=== PATIENT | female | born 1955 | race Caucasian/White ===

== ENCOUNTER 2017-05-03 13:24 | Inpatient (IN) | payer OTHER ==
[~2017-05-03] VITALS: Ht 152.4 cm; Wt 62.1 kg
[2017-05-03] VITALS (13 sets, daily range): BP systolic 89–144; BP diastolic 59–85; PULSE 62–78; TEMP 36.4–37; O2SAT 94–97; Ht 152.4 cm; Wt 62.1 kg
[~2017-05-03 13:24] MED LIST: GEMF600T3 PO; ONDA4TAB7 SL
[2017-05-03] MEDS ORDERED: MELO15TA4 PO (14:13)
--- NOTE | 2017-05-03 14:28 | EMERGENCY ROOM VISIT NOTE ---
History First contact with patient: 13:40 Chief Complaint: CARDIAC ASSESSMENT Stated Complaint: TIGHT CHEST, ELIEZER ARMS, THROWING UP Nursing Triage Summary: pt states around 1200 pt c/o chest tightness that radiated to bilateral neck pt also c/o bilateral arm numbness and SOB. pt states pain last 15-20 minutes then subsided. pt did not take anything for pain. at this time pt denies chest pain or sob. but continues to have bilateral arm numbness. pt states symptoms happened once alst week. History of Present Illness The patient is a 62 year old female with HLD who presents to the Emergency Room with complaints of Substernal Chest discomfort. Chest Discomfort started around 9 AM today from rest and was described as pressure sensation at 9/10 intensity with radiation to the Rt Neck. No aggravating or alleviating factors. She did not take any medication for relief Patient also reports N/V following event. She denies calf pain, correlation with breathing.No correlation with meals. No fevers, chills. Patient has no Heart or Lung or GERD hx Review of Systems Pt denies headache, change in vision, fevers, shortness of breath, diarrhea, pain with urination, and melena. Past Medical/Surgical History Medical Problems: (1) NSTEMI (non-ST elevated myocardial infarction) (2) Spondylosis of L5 Social History Smoking Status: Never Smoker Smokeless Tobacco Use: No Alcohol Use: occasionally Drug Use: none Marital Status: Housing Status: lives with family Occupation Status: employed Current/Historical Medications Scheduled Gemfibrozil (Lopid), 600 MG PO BID Meloxicam (Meloxicam), 15 MG PO QAM Physical Exam Vital Signs Date Time Temp Pulse Resp B/P (MAP) Pulse Ox O2 Delivery O2 Flow Rate FiO2 05/03/17 17:30 66 16 130/70 (90) 98 Room Air 05/03/17 17:25 68 16 133/74 (93) 98 Room Air 05/03/17 17:15 68 16 133/92 (106) 98 Room Air 05/03/17 15:50 80 18 150/95 97 Room Air 05/03/17 14:42 79 18 184/97 99 Room Air 05/03/17 13:50 99 Room Air 05/03/17 13:42 75 05/03/17 13:33 96 Room Air 05/03/17 13:29 36.7 95 18 155/90 96 Room Air Physical Exam GENERAL: alert, well appearing, well nourished, no distress, non-toxic EYE EXAM: normal conjunctiva, PERRL and EOM's grossly intact OROPHARYNX: no exudate, no erythema, lips, buccal mucosa, and tongue normal and mucous membranes are moist NECK: supple, no nuchal rigidity, no adenopathy, non-tender LUNGS: Clear to auscultation. Normal chest wall mechanics HEART: no murmurs, S1 normal and S2 normal ABDOMEN: abdomen soft, non-tender, normo-active bowel sounds, no masses, no rebound or guarding. SKIN: no rashes and no bruising UPPER EXTREMITIES: upper extremities are grossly normal. LOWER EXTREMITIES: No pitting edema, no calf tenderness NEURO EXAM: Normal sensorium, cranial nerves II-XII grossly intact, normal speech, Medical Decision & Procedures Laboratory Results 05/03/17 15:45 Red Blood Count 5.17, Mean Corpuscular Volume 87.8, Mean Corpuscular Hemoglobin 30.8, Mean Corpuscular Hemoglobin Concent 35.0, Mean Platelet Volume 10.4, Neutrophils (%) (Auto) 70.7, Lymphocytes (%) (Auto) 19.3, Monocytes (%) (Auto) 8.1, Eosinophils (%) (Auto) 1.3, Basophils (%) (Auto) 0.5, Neutrophils # (Auto) 5.86, Lymphocytes # (Auto) 1.60, Monocytes # (Auto) 0.67, Eosinophils # (Auto) 0.11, Basophils # (Auto) 0.04 05/03/17 13:42 Test 05/03/17 13:42 05/03/17 15:45 05/03/17 16:47 Anion Gap 8.0 mmol/L (3-11) Est Creatinine Clear Calc Drug Dose 44.0 ml/min Estimated GFR () 62.8 Estimated GFR (Non- 54.1 BUN/Creatinine Ratio 14.3 (10-20) Calcium Level 9.8 mg/dl (8.5-10.1) Troponin I 0.477 ng/ml (0-0.045) Chemistry Specimen Hemolysis White Blood Count 8.29 K/uL (4.8-10.8) Red Blood Count 5.17 M/uL (4.2-5.4) Hemoglobin 15.9 g/dL (12.0-16.0) Hematocrit 45.4 % (37-47) Mean Corpuscular Volume 87.8 fL (80-100) Mean Corpuscular Hemoglobin 30.8 pg (25-34) Mean Corpuscular Hemoglobin Concent 35.0 g/dl (32-36) Platelet Count 320 K/uL (130-400) Mean Platelet Volume 10.4 fL (7.4-10.4) Neutrophils (%) (Auto) 70.7 % Lymphocytes (%) (Auto) 19.3 % Monocytes (%) (Auto) 8.1 % Eosinophils (%) (Auto) 1.3 % Basophils (%) (Auto) 0.5 % Neutrophils # (Auto) 5.86 K/uL (1.4-6.5) Lymphocytes # (Auto) 1.60 K/uL (1.2-3.4) Monocytes # (Auto) 0.67 K/uL (0.11-0.59) Eosinophils # (Auto) 0.11 K/uL (0-0.5) Basophils # (Auto) 0.04 K/uL (0-0.2) RDW Standard Deviation 39.4 fL (36.4-46.3) RDW Coefficient of Variation 12.3 % (11.5-14.5) Immature Granulocyte % (Auto) 0.1 % Immature Granulocyte # (Auto) 0.01 K/uL (0.00-0.02) Prothrombin Time 10.5 SECONDS (9.0-12.0) Prothromb Time International Ratio 1.0 (0.9-1.1) Activated Partial Thromboplast Time 27.8 SECONDS (21.0-31.0) Partial Thromboplastin Ratio 1.1 Kaolin Activated Coagulation Time 224 SECONDS (94-140) Medications Administered Medications (Trade) Dose Ordered Sig/Monty Route Start Time Stop Time Status Last Admin Dose Admin Aspirin (Aspirin Chew) 325 mg NOW STAT PO 05/03/17 14:43 05/03/17 14:44 DC 05/03/17 14:43 325 MG Midazolam HCl (Versed Inj) 2 mg STK-MED ONCE .ROUTE 05/03/17 15:53 05/03/17 15:54 DC 05/03/17 15:53 2 MG Fentanyl Citrate (Fentanyl Inj) 100 mcg STK-MED ONCE .ROUTE 05/03/17 15:53 05/03/17 15:54 DC 05/03/17 15:53 62.5 MCG Heparin Sodium (Porcine) (Heparin Iv Bolus) 10,000 unit STK-MED ONCE .ROUTE 05/03/17 16:26 05/03/17 16:27 DC 05/03/17 16:26 10,000 UNIT Midazolam HCl (Versed Inj) 2 mg STK-MED ONCE .ROUTE 05/03/17 16:53 05/03/17 16:54 DC 05/03/17 16:53 1 MG Clopidogrel Bisulfate (plAVix TAB) 600 mg STK-MED ONCE PO 05/03/17 17:14 05/03/17 17:15 DC 05/03/17 17:14 600 MG Fentanyl Citrate (Fentanyl Inj) 100 mcg STK-MED ONCE .ROUTE 05/03/17 17:52 05/03/17 17:53 DC 05/03/17 17:52 50 MCG Medical Decision 62 yo F with no cardio/pulmonary hx p/w hx of 9/10 non-exertional chest discomfort, radiating to right neck , resolved after 15-20 min morning of arrival. Chest pain recurred while in the ED. Differential diagnoses includes but is not limited to acute coronary syndrome, myocardial infarction, pericarditis, pulmonary embolus, aortic dissection, pneumonia, pneumothorax, costochondritis, GERD EKG: NSR, T-wave inversions in V2- V6, Repeat EKG, no improvement CBC: unremarkable BMP unremarkable Troponin: 0.477 CXR : Nonspecific opacity at the level of the right cardiophrenic angle, statistically representing a fat pad or atelectatic change Given patient's hx and EKG concerning for NSTEMI , Cardiology (Dr. Stewart was notified) and Hospitalist lead python developer (Dr. Varma) were called and agreed to evaluate patient. Patient received ASA 325 mg while in the ED. Elevated Troponin confirmed suspicion and decision was made by cardiology to send patient for Catheterization. Impression Primary Impression: Chest discomfort Departure Information Dispostion Home / Self-Care Condition GOOD Referrals Eboni Manuel (PCP) Patient Instructions My [facility] Resident Tracking Resident Involvement: Resident Care Provided Care Provided: Adult ED
--- NOTE | 2017-05-03 14:38 | DIAGNOSTIC IMAGING REPORT ---
CHEST 2 VIEWS ROUTINE CLINICAL HISTORY: Atypical chest pain, arm tingling, vomiting. COMPARISON STUDY: No previous studies for comparison. FINDINGS: The heart is normal in size. There is no failure. There is no lobar consolidation. There are no pleural effusions. There is an opacity at the level of the right cardiophrenic angle, likely representing a fat pad or atelectatic change.[ IMPRESSION: Nonspecific opacity at the level of the right cardiophrenic angle, statistically representing a fat pad or atelectatic change Electronically signed by: Joshua Flynn M.D. 05/03/2017 2:37 PM Dictated Date/Time: 05/03/2017 2:36 PM
[2017-05-03] MEDS ORDERED: ASPIRIN 81 MG CHEW PO STA (14:43)
[2017-05-03] MEDS ORDERED: NITROGLYCERIN 0.4 MG SL PER TAB CHARGE SL PRN ×2 (14:45→16:00)
[2017-05-03 15:27] LABS: BUN/CREATININE RATIO 14.3 (10-20); CALCIUM 9.8 mg/dl (8.5-10.1); CREATININE 1.1 mg/dl (0.60-1.20)
[2017-05-03] MEDS ORDERED: FENTANYL CITRATE INJ 50 MCG/1 ML 2 ML VIAL ONE ×2 (15:53→17:52)
[2017-05-03] MEDS ORDERED: MIDAZOLAM HCL 1 MG/ML 2ML VIAL ONE ×2 (15:53→16:53)
[2017-05-03 15:56] LABS: BASO % 0.5 %; BASO ABS # 0.04 K/uL (0-0.2); COMPLETE YES; EOS % 1.3 %; HEMATOCRIT 45.4 % (37-47); IG% 0.1 %; LYMPH % 19.3 %; MEAN CELL VOLUME 87.8 fL (80-100); MEAN CORPUSCULAR HEMOGLOBIN 30.8 pg (25-34); MEAN PLATELET VOLUME 10.4 fL (7.4-10.4); MONO % 8.1 %; NEUT % 70.7 %; PLATELET COUNT 320 K/uL (130-400); RED BLOOD COUNT 5.17 M/uL (4.2-5.4); WHITE BLOOD COUNT 8.29 K/uL (4.8-10.8)
[2017-05-03] MEDS ORDERED: MoRPHine SULFATE 2 MG/ML CARP IV PRN ×2 (16:00→17:45)
[2017-05-03] MEDS ORDERED: ACETAMINOPHEN 325 MG TAB PO PRN ×2 (16:00→17:45)
[2017-05-03 16:22] LABS: PARTIAL THROMBOPLASTIN RATIO 1.1; PROTHROMBIN TIME (PATIENT) 10.5 SECONDS (9.0-12.0)
[2017-05-03] MEDS ORDERED: NiCARDipine HCL INJ 2.5 MG/ML 10 ML AMP ONE (16:25)
[2017-05-03] MEDS ORDERED: HEPARIN SOD (PORCINE) 1000 UNIT/ML 10 ML VIAL ONE (16:26)
[2017-05-03] MEDS ORDERED: NITROGLYCERIN/D5W 100MCG/ML 20ML SYR ONE (16:26)
--- NOTE | 2017-05-03 16:38 | History and Physical ---
History & Physical Date & Time of Service: May 03, 2017 at 16:13 Chief Complaint: Tight Chest, [place] Arms, Throwing Up Primary Care Physician: Eboni Manuel History of Present Illness Source: patient, family Pt is a 62 yo female with a h/o spondylolysis of the lower back, hyperlipidemia , who presents with an episode of chest pain that was substernal, severe at 9/10 , felt like a pressure, radiated to the shoulders, and caused nausea and tingling in her hands. It lasted about 15-20 min then went away on its own. SHe came here and had a recurrence of her pain again that was similar, was given ASA 325mg and pain went away. She had significant TWIs in aVL and V2-V5 and a positive troponin of 0.4. She was urgently evaluated by Cardiology in the ER and decision was made to take her to the laborer electroplating today. Currently, she is chest pain free. Past Medical/Surgical History PMH: Spondylosis of L5 Hyperlipidemia PSH: Tooth extraction Ovarian cyst removal-laparoscopy Tonsillectomy Family History Mom-dementia, Alzheimer's, Father-unknown Brother-HTN, HL, Intellectual disability Brother-intellectual disability Social History Smoking Status: Never Smoker Smokeless Tobacco Use: No Alcohol Use: occasionally Drug Use: none Marital Status: Housing status: lives with significant other Occupational Status: employed Allergies Coded Allergies: Sulfa Antibiotics (Unverified Adverse Reaction, Intermediate, RASH, ) Home Medications Scheduled Gemfibrozil (Lopid), 600 MG PO BID Meloxicam (Meloxicam), 15 MG PO QAM Review of Systems Constitutional: No fever Eyes: No problem reported ENT: No problem reported Respiratory: No problem reported Cardiovascular: + chest pain Abdomen: No pain, No nausea, No vomiting Musculoskeletal: + problem reported (lower back pain) Genitourinary - Female: No problem reported Neurologic: No problem reported Psychiatric: No problem reported Endocrine: No problem reported Hematologic / Lymphatic: No problem reported Integumentary: No problem reported Allergic / Immunologic: No problem reported Physical Exam Vital Signs Date Time Temp Pulse Resp B/P (MAP) Pulse Ox O2 Delivery O2 Flow Rate FiO2 05/03/17 15:50 80 18 150/95 97 Room Air 05/03/17 14:42 79 18 184/97 99 Room Air 05/03/17 13:50 99 Room Air 05/03/17 13:42 75 05/03/17 13:33 96 Room Air 05/03/17 13:29 36.7 95 18 155/90 96 Room Air General Appearance: WD/WN, no apparent distress, + thin Head: normocephalic, atraumatic Eyes: normal inspection, EOMI, sclerae normal ENT: hearing grossly normal Neck: supple, trachea midline Respiratory/Chest: lungs clear, normal breath sounds, no respiratory distress, no accessory muscle use Cardiovascular: regular rate, rhythm, no edema, no gallop, no JVD, no murmur, normal peripheral pulses Abdomen/GI: normal bowel sounds, non tender, soft, no organomegaly, no pulsatile mass Back: normal inspection, no muscle spasm Extremities/Musculoskelatal: normal inspection, no calf tenderness, normal capillary refill, no pedal edema, normal range of motion, + pertinent finding (2 + radial and DP pulses bilat) Neurologic/Psych: alert, oriented x 3, + pertinent finding (anxious due to upcoming cardiac cath) Skin: normal color, warm/dry, no rash Diagnostics Laboratory Results Results Past 24 Hours Test 05/03/17 13:42 05/03/17 15:45 Range/Units Sodium Level 138 136-145 mmol/L Potassium Level 4.0 3.5-5.1 mmol/L Chloride Level 109 98-107 mmol/L Carbon Dioxide Level 21 21-32 mmol/L Anion Gap 8.0 3-11 mmol/L Blood Urea Nitrogen 16 7-18 mg/dl Creatinine 1.10 0.60-1.20 mg/dl Est Creatinine Clear Calc Drug Dose 44.0 ml/min Estimated GFR () 62.8 Estimated GFR (Non- 54.1 BUN/Creatinine Ratio 14.3 10-20 Random Glucose 94 70-99 mg/dl Calcium Level 9.8 8.5-10.1 mg/dl Troponin I 0.477 0-0.045 ng/ml Chemistry Specimen Hemolysis White Blood Count 8.29 4.8-10.8 K/uL Red Blood Count 5.17 4.2-5.4 M/uL Hemoglobin 15.9 12.0-16.0 g/dL Hematocrit 45.4 37-47 % Mean Corpuscular Volume 87.8 80-100 fL Mean Corpuscular Hemoglobin 30.8 25-34 pg Mean Corpuscular Hemoglobin Concent 35.0 32-36 g/dl Platelet Count 320 130-400 K/uL Mean Platelet Volume 10.4 7.4-10.4 fL Neutrophils (%) (Auto) 70.7 % Lymphocytes (%) (Auto) 19.3 % Monocytes (%) (Auto) 8.1 % Eosinophils (%) (Auto) 1.3 % Basophils (%) (Auto) 0.5 % Neutrophils # (Auto) 5.86 1.4-6.5 K/uL Lymphocytes # (Auto) 1.60 1.2-3.4 K/uL Monocytes # (Auto) 0.67 0.11-0.59 K/uL Eosinophils # (Auto) 0.11 0-0.5 K/uL Basophils # (Auto) 0.04 0-0.2 K/uL RDW Standard Deviation 39.4 36.4-46.3 fL RDW Coefficient of Variation 12.3 11.5-14.5 % Immature Granulocyte % (Auto) 0.1 % Immature Granulocyte # (Auto) 0.01 0.00-0.02 K/uL CXR normal EKG NSR, TWIs in aVL and V2-V5 Impression Assessment and Plan Pt is a 62 yo female with a h/o spondylolysis of the lower back, hyperlipidemia , who presents with an episode of chest pain that was substernal, severe at 9/10 , felt like a pressure, radiated to the shoulders, and caused nausea and tingling in her hands. It lasted about 15-20 min then went away on its own. She came here and had a recurrence of her pain again that was similar, was given ASA 325mg and pain went away. She had significant TWIs in aVL and V2-V5 and a positive troponin of 0.4. She was urgently evaluated by Cardiology in the ER and decision was made to take her to the laborer electroplating. NSTEMI, Elevated BP- initial trop 0.4, ECG changes consistent with anterolateral ischemia. Taken right to laborer electroplating from ER, no heparin gtt started -urgent cath today --ASA at a minimum and may end up needing DAPT if has stent placed -telemetry monitoring -high intensity statin -trend troponin -start beta latrell after cath -check ECHO for LV function -check lipid panel, HgbA1C Lower back pain-was using Mobic -avoid use of NSAIDs given NSTEMI Hyperlipidemia-check lipid panel -will need to start on high intensity statin after cath Proph-heparin if not on integrilin gtt after cath Dispo-Full Code Level of Care Telemetry Resuscitation Status FULL RESUSCITATION VTE Prophylaxis VTE Risk Assessment Done? Y/N: Yes Risk Level: Moderate Given or contraindicated: SCD's Additional Copies To Eboni Manuel
--- NOTE | 2017-05-03 16:39 | Procedure Note ---
Pre-Mod Sedation Assessment General Date of Moderate Sedation: May 03, 2017. Vital Signs: Vital Signs Past 12 Hours Date Time Temp Pulse Resp B/P (MAP) Pulse Ox O2 Delivery O2 Flow Rate FiO2 05/03/17 15:50 80 18 150/95 97 Room Air 05/03/17 14:42 79 18 184/97 99 Room Air 05/03/17 13:50 99 Room Air 05/03/17 13:42 75 05/03/17 13:33 96 Room Air 05/03/17 13:29 36.7 95 18 155/90 96 Room Air Review Cardiovascular: regular rate, rhythm, no edema, no gallop, no JVD Abdomen: normal bowel sounds, non tender, soft Lungs: chest non-tender, lungs clear, normal breath sounds Pre-Sedation Airway Assessment Smoking Status: Never Smoker Mallampati Classification: Class III ASA Classification: Class IV Procedure Planning Contraindications-for Mod Sed: None Yes Notes The planned sedation has been discussed with the patient and consent obtained. I have identified the patient, determined the appropriateness of sedation and have assessed the patient immediately prior to the procedure. All medicine(s) and interventions are by my order.
--- NOTE | 2017-05-03 16:40 | Procedure Note ---
Post-Mod Sedation Assessment General Date of Moderate Sedation May 03, 2017. Vital Signs: Vital Signs Past 12 Hours Date Time Temp Pulse Resp B/P (MAP) Pulse Ox O2 Delivery O2 Flow Rate FiO2 05/03/17 15:50 80 18 150/95 97 Room Air 05/03/17 14:42 79 18 184/97 99 Room Air 05/03/17 13:50 99 Room Air 05/03/17 13:42 75 05/03/17 13:33 96 Room Air 05/03/17 13:29 36.7 95 18 155/90 96 Room Air Review - Discharge Criteria Vital Signs Stable: Yes Alert/Oriented/Conversant: Yes Returned to Baseline Mental St: Yes Nausea Absent/Minimal: Yes Pain/Discomfort/Absent/Minimal: Yes Normal/Baseline Respirations: Yes Active Bleeding?: No Pt Received D/C Instructions: N/A Prescriptions Given: None Specific Proced. D/C Criteria Distal Pulses Present (Cardiac: Yes Groin site assessed-Card Cath: Yes Voided Prior To Discharge: N/A Discharged Patients Adult Escort/Transportation: Yes
--- NOTE | 2017-05-03 16:53 | Cardiac Catheterization ---
Procedure Note Procedure Date May 03, 2017. Pre-Procedure Diagnosis Non STEMI AUC Score 9 Post-Procedure Diagnosis Severe CAD Procedure(s) Performed Coronary Angiography, Left Heart Cath Director Digital Sales Dr. Puentes Coremaker Apprentice(s) Glunt WET MILLING WHEEL OPERATOR Estimated Blood Loss 5cc Medication(s) Fentanyl, Versed, Lidocaine 1% Summary of Findings 99% mid LAD 70% ostial OM 50% mid Lcx Hemodynamics Rest Ao: 144/74/102 Final Ao: 148/78/108 LV: 151/4/12 Recommendations PCI without planned CABG Specimens None Radiation Exposure (mGy) 579 Contrast (mls) 55 Fluids (cc crystalloids) 52 Anesthesia Moderate sedation, Start 1611, End 1632 Procedural Complication(s) None Disposition Patient remained in label operator for PCI to LAD ACC Data Cardiac Status Clinical evaluation leading to the procedure CAD Presntation: Non STEMI Anginal Classification: CCS IV Heart Failure: No Cardiogenic Shock w/in 24Hrs: No Cardiac Arrest w/in 24Hrs: No Imaging studies past 6 months: No Stress studies past 6 months: No Coronary Anatomy Dominant: Right Left Main (% Stenosis): Normal LAD (% Stenosis): Ostial (0%), Proximal (10%), Mid (99%), Distal (0%) D1 (% Stenosis): Normal D2 (% Stenosis): Ostial (small vessel with 80% ostial at level of LAD stenosis) D3 (% Stenosis): Normal Circumflex (% Stenosis): Ostial (0%), Proximal (0%), Mid (50%), Distal (0%) OM1 (% Stenosis): Ostial (70%), Proximal (0%), Mid (0%), Distal (0%) RCA (% Stenosis): Ostial (20% taper likely spasm.), Normal R PDA (% Stenosis): Normal R PL1 (% Stenosis): Normal AM (% Stenosis): Normal Diagnostic Status: Urgent Closure Device Percutaneous Entry Location: Femoral
--- NOTE | 2017-05-03 16:59 | Cardiology Consultation ---
Cardiology Consultation Requesting Physician: Dr. Joshua Menon (ED) Attending Poultry Scalder: Dr. Rodrigo Puentes History of Present Illness Patient is a 62 year old female seen at the request of the ER for chest pain. Patient developed chest discomfort approximately 9:30 this morning. She described a heaviness and tightness that was severe initially, 06/24. There was associated shortness of breath followed by nausea. She came to the emergency department had chest discomfort initially which resolved. She was treated with aspirin. Currently patient is chest pain-free. Review of her ECGs demonstrates T-wave inversions in the anterior lateral precordial leads. Her initial ECG demonstrated subtle ST elevation in leads V5 and V6. Her initial troponin is elevated. Repeat ECG demonstrates ST segments at baseline with T- wave inversion. She is hemodynamically stable. No prior history of coronary disease, hypertension, peripheral vascular disease, rheumatic fever as a child, or diabetes. There is a remote history of tobacco use. No family history of premature coronary disease. Denies any history of GI or bleeding. Family is present at bedside. Past Medical/Surgical History Problem List: Medical Problems: (1) NSTEMI (non-ST elevated myocardial infarction) (2) Spondylosis of L5 Family History Denies family history of premature coronary artery disease or sudden cardiac . Social History Smoking Status: Never Smoker Smokeless Tobacco Use: No Alcohol Use: occasionally Drug Use: none Marital Status: Housing Status: lives with significant other Occupation: employed Review Of Systems General: The patient denies weight change, night sweats, fever, chills. Head: The patient denies headache and prior head trauma. Cardiovascular: The patient denies chest pain or chest discomfort, dyspnea on exertion, palpitations, PND, orthopnea, edema, spontaneous shortness of breath, syncope and near syncope. Pulmonary: The patient denies cough, wheeze, pleurisy, hemoptysis, sputum, and excessive snoring. Gastrointestinal: The patient denies nausea, vomiting, diarrhea, constipation, bloating, hematemesis, hematochezia, and abdominal pain. Skin: The patient denies diaphoresis and rash. Musculoskeletal: The patient denies joint pain, joint swelling, myalgia, back pain, neck pain and prior injuries. Neurological: The patient denies prior stroke and seizures Allergies Coded Allergies: Sulfa Antibiotics (Verified Adverse Reaction, Intermediate, RASH, 05/03/17) Medications Reported Home Medications Medications Dose Route/Sig Max Daily Dose Days Date Category Dose Instructions Meloxicam 15 Mg Tab 15 Mg PO QAM 05/03/17 Reported Lopid (Gemfibrozil) 600 Mg Tab 600 Mg PO BID 09/08/10 Reported take 30 min before morning and evening meal Physical Exam Vital Signs (Last 8hrs): Last 8 Hrs Date Time Temp Pulse Resp B/P (MAP) Pulse Ox O2 Delivery O2 Flow Rate FiO2 05/03/17 15:50 80 18 150/95 97 Room Air 05/03/17 14:42 79 18 184/97 99 Room Air 05/03/17 13:50 99 Room Air 05/03/17 13:42 75 05/03/17 13:33 96 Room Air 05/03/17 13:29 36.7 95 18 155/90 96 Room Air General Appearance: Alert and Oriented x3. NAD. Head: Normocephalic Atraumatic. Eyes: PERRLA, EOMI, conjunctiva and sclera clear Neck: Supple. No carotid bruits noted. No JVD. No HJD. Respiratory: Breath sounds clear to auscultation bilaterally. No w/r/r. Cardiovascular: Reg rate and rhythm. S1 and S2 noted. No murmurs, rubs, gallops. PMI non displace. Abdomen: Normal bowel sounds, soft nontender. no abdominal bruits. Extremities: No edema, no clubbing or cyanosis. distal pulses 2/4 bilaterally. Neuro: No focal deficits. Psychiatric: Normal affect. Data Last 24 Hours Test 05/03/17 13:42 05/03/17 15:45 Sodium Level 138 mmol/L Potassium Level 4.0 mmol/L Chloride Level 109 mmol/L Carbon Dioxide Level 21 mmol/L Anion Gap 8.0 mmol/L Blood Urea Nitrogen 16 mg/dl Creatinine 1.10 mg/dl Est Creatinine Clear Calc Drug Dose 44.0 ml/min Estimated GFR () 62.8 Estimated GFR (Non- 54.1 BUN/Creatinine Ratio 14.3 Random Glucose 94 mg/dl Calcium Level 9.8 mg/dl Troponin I 0.477 ng/ml Chemistry Specimen Hemolysis White Blood Count 8.29 K/uL Red Blood Count 5.17 M/uL Hemoglobin 15.9 g/dL Hematocrit 45.4 % Mean Corpuscular Volume 87.8 fL Mean Corpuscular Hemoglobin 30.8 pg Mean Corpuscular Hemoglobin Concent 35.0 g/dl Platelet Count 320 K/uL Mean Platelet Volume 10.4 fL Neutrophils (%) (Auto) 70.7 % Lymphocytes (%) (Auto) 19.3 % Monocytes (%) (Auto) 8.1 % Eosinophils (%) (Auto) 1.3 % Basophils (%) (Auto) 0.5 % Neutrophils # (Auto) 5.86 K/uL Lymphocytes # (Auto) 1.60 K/uL Monocytes # (Auto) 0.67 K/uL Eosinophils # (Auto) 0.11 K/uL Basophils # (Auto) 0.04 K/uL RDW Standard Deviation 39.4 fL RDW Coefficient of Variation 12.3 % Immature Granulocyte % (Auto) 0.1 % Immature Granulocyte # (Auto) 0.01 K/uL Prothrombin Time 10.5 SECONDS Prothromb Time International Ratio 1.0 Activated Partial Thromboplast Time 27.8 SECONDS Partial Thromboplastin Ratio 1.1 Imaging: Chest x-ray: No acute disease. EKG: Sinus rhythm with T-wave inversions in the anterior lateral precordial leads. Telemetry reviewed: Sinus rhythm Assessment & Plan Final impression: 1. 62-year-old female presents with NSTEMI. Currently pain-free. 2. Dyslipidemia on chronic gemfibrozil therapy. 3. Remote tobacco abuse history 4. Chronic NSAID use (mobic) Plan/recommendations: ECG findings in conjunction with chest discomfort and elevated troponins discussed with the patient and her family at bedside. Recommend urgent cardiac catheterization with coronary angiography. Usual host of Plavix screening questions were asked. She is a drug-eluting stent candidate. She will be given high-dose statin therapy and beta latrell post procedure. The risks of procedure were discussed in depth. Both the patient and her family are agreeable to cardiac catheterization with percutaneous intervention if indicated. Further recommendations pending review of cardiac catheterization.
--- NOTE | 2017-05-03 17:00 | EMERGENCY ROOM VISIT NOTE ---
ED Visit Note First contact with patient: 13:40 Resident Physician Supervision Note: I interviewed and examined the patient. Discussed with Dr. Theodore and agree with findings and plan as documented in the note. Any exceptions or clarifications are listed here: [None] The patient's clinical findings and EKG are very worrisome for acute coronary syndrome/NC. Case was discussed with cardiology and with the hospitalist. The patient was ultimately taken to the Search Marketing Specialist Documented By: Anthony Menon
[2017-05-03] MEDS ORDERED: CLOPIDOGREL BISULFATE 300 MG TAB PO ONE (17:14)
[2017-05-03] MEDS ORDERED: ONDANSETRON INJ 2 MG/ML 2 ML VIAL IV PRN (17:45)
--- NOTE | 2017-05-03 18:09 | Procedure Note ---
Post-Mod Sedation Assessment General Date of Moderate Sedation May 03, 2017. Vital Signs: Vital Signs Past 12 Hours Date Time Temp Pulse Resp B/P (MAP) Pulse Ox O2 Delivery O2 Flow Rate FiO2 05/03/17 17:25 68 16 133/74 (93) 98 Room Air 05/03/17 17:15 68 16 133/92 (106) 98 Room Air 05/03/17 15:50 80 18 150/95 97 Room Air 05/03/17 14:42 79 18 184/97 99 Room Air 05/03/17 13:50 99 Room Air 05/03/17 13:42 75 05/03/17 13:33 96 Room Air 05/03/17 13:29 36.7 95 18 155/90 96 Room Air Review - Discharge Criteria Vital Signs Stable: Yes Alert/Oriented/Conversant: Yes Returned to Baseline Mental St: Yes Nausea Absent/Minimal: Yes Pain/Discomfort/Absent/Minimal: Yes Normal/Baseline Respirations: Yes Active Bleeding?: No Pt Received D/C Instructions: N/A Prescriptions Given: None Specific Proced. D/C Criteria Distal Pulses Present (Cardiac: Yes Groin site assessed-Card Cath: Yes Voided Prior To Discharge: N/A Discharged Patients Adult Escort/Transportation: Yes
--- NOTE | 2017-05-03 18:24 | Cardiac Catheterization ---
Procedure Note Procedure Date May 03, 2017. Pre-Procedure Diagnosis Non STEMI AUC Score 9 Post-Procedure Diagnosis Severe CAD, Successful PCI Procedure(s) Performed Drug Eluting Stent, Femoral Artery Angiography Librarian [employer] Library Evgeny [employer] Barrier Attendant(s) Lesliet Estimated Blood Loss 15 Medication(s) Clopidogrel, Fentanyl, Heparin, Nitroglycerin, Versed, Lidocaine 1% Summary of Findings Indication: High-risk NSTEMI Access: 6Fr Right Femoral Artery Catheters: EBU 3.5 guide Findings: For full details of patients coronary angiography please see cath report dictated by Dr. Puentes. Briefly patient found to have 95% early mid LAD lesion in the setting of elevated troponin/dynamic ECG changes -- PCI -- Antithrombotic therapy: Heparin, Clopidogrel Procedure: LM cannulated with EBU 3.5 guide Pot Holder Binder 50 wire passed across lesion into distal vessel LAD lesion predilated with 2.5 compliant balloon Dilated lesion stented with 3.0 x 26 Resolute JOHN Stent post-dilated with 3.25 noncompliant balloon IC vasodilators administered for spasm 1st septal branch with new severe ostial stenosis but BECCA 3 flow Post procedure BECCA 3 flow, stent well expanded with minimal residual stenosis and no apparent cardiac complications. Arterial Closure: Mynx with manual compression Summary: 1. Severe 2 vessel coronary artery disease - 95% mid LAD - 70-80% ostial 1st OM 2. Successful PCI of mid LAD with 3.0 x 26 Resolute Recommendations: To PCU for continued monitoring Loaded with Clopidogrel 600 mg in collaborative physician Continue dual-antiplatelet therapy with ASA/Clopidogrel for 1 year Continue statin, beta-latrell, and ASCVD risk factor modification per Dr. Puentes Consult cardiac Rehab Hemodynamics Rest Ao: 148/78/108 Final Ao: 126/72/96 LV: -- Recommendations Medical therapy and/or Counseling Specimens None Radiation Exposure (mGy) 1496 Contrast (mls) 135 Visi Fluids (cc crystalloids) 279 Drains None Anesthesia Moderate Procedural Complication(s) None Disposition PCU ACC Data Cardiac Status Clinical evaluation leading to the procedure CAD Presntation: Non STEMI Anginal Classification: CCS IV Heart Failure: No, NYHA Class: CCS I Cardiogenic Shock w/in 24Hrs: No Cardiac Arrest w/in 24Hrs: No Imaging studies past 6 months: No Stress studies past 6 months: No Diagnostic Physician's Name: Alonso Puentes DO Status: Urgent Closure Device Percutaneous Entry Location: Femoral Closure Device: Mynx Recommendations: PCI without planned CABG PCI Indication: PCI for high risk Non-STEMI Lesion Segment Name: Mid LAD Culprit Artery: Yes Stenosis Prior to Rx (%): 99 Chronic Total Occlusion: No IVUS: No FFR: No Pre-Procedure BECCA Flow: 3 Previously Treated Lesion: No Lesion Complexity: Non-High/Non-C Lesion Length (mm): 20 Thrombus Present: Yes Bifurcation Lesion: No Guidewire Across Lesion: Yes Guidewire: Stenosis Post-Procedure (%): 0 Post-Procedure BECCA Flow: 3 Device(s) Deployed: Yes Intraprocedure Events Significant Dissection: No Perforation: No
[2017-05-03] MEDS: SODIUM CHLORIDE 0.9% 1000ML 1,000 ML IV SCH (18:28)
[2017-05-03] MEDS: ATORVASTATIN 40 MG TAB PO SCH (21:14)
[2017-05-03] MEDS: METOPROLOL TARTRATE 25 MG TAB PO SCH (21:14)
[2017-05-03 22:59] LABS: CKMB/CK RATIO 8.6 (0-3.0)
[2017-05-04] VITALS (8 sets, daily range): BP systolic 95–151; BP diastolic 60–88; PULSE 60–77; TEMP 36.5–36.9; O2SAT 95–99
[2017-05-04] MEDS: SODIUM CHLORIDE 0.9% 1000ML 1,000 ML IV SCH (01:04)
[2017-05-04 06:21] LABS: BASO % 0.4 %; BASO ABS # 0.03 K/uL (0-0.2); COMPLETE YES; EOS % 1.1 %; HEMATOCRIT 38.2 % (37-47); IG% 0.1 %; LYMPH % 30.2 %; LYMPH ABS # 2.23 K/uL (1.2-3.4); MEAN CELL VOLUME 89.3 fL (80-100); MEAN CORPUSCULAR HEMOGLOBIN 29.7 pg (25-34); MEAN CORPUSCULAR HGB CONC 33.2 g/dl (32-36); MEAN PLATELET VOLUME 10.5 fL (7.4-10.4); MONO % 10.8 %; NEUT % 57.4 %; PLATELET COUNT 268 K/uL (130-400); RED BLOOD COUNT 4.28 M/uL (4.2-5.4); WHITE BLOOD COUNT 7.39 K/uL (4.8-10.8)
[2017-05-04 06:35] LABS: BUN/CREATININE RATIO 21.4 (10-20); CALCIUM 8.4 mg/dl (8.5-10.1); CREATININE 0.79 mg/dl (0.60-1.20); POTASSIUM 3.8 mmol/L (3.5-5.1)
[2017-05-04 06:41] LABS: CHOLESTEROL/HDL RATIO 4.5
[2017-05-04] MEDS: METOPROLOL TARTRATE 25 MG TAB PO SCH ×2 (08:21→22:02)
[2017-05-04] MEDS: ASPIRIN 81 MG ECTAB PO SCH (08:22)
[2017-05-04] MEDS: CLOPIDOGREL BISULFATE 75 MG TAB PO SCH (08:23)
--- NOTE | 2017-05-04 08:41 | ECHOCARDIOGRAM REPORT ---
*NOTICE TO RECEIVING CONSTITUTION PARTY AGENCY This information is strictly Confidential and protected under [place] law. [place] law prohibits you from making any further disclosure of this information unless further disclosure is expressly permitted by the written consent of the person to whom it pertains or is authorized by law. A general authorization for the release of medical or other information is not sufficient for this purpose. Hospital accepts no responsibility if the information is made available to any other person, INCLUDING THE PATIENT. Interpretation Summary * Name: RENITA NUNEZ Study Date: 05/04/2017 06:20 AM BP: 101/60 mmHg * Patient Location: C.2T\S\E222\S\1 HR: 58 * : 1955 (M/d/yyyy) Gender: Female Height: 60 in * Age: 62 yrs Ethnicity: [place] Weight: 135 lb * Ordering Physician: Patricia Varma * Referring Physician: Self, Referred * Performed By: Yudith Todd RCS * * Reason For Study: CHEST PAIN * BSA: 1.6 m2 * The study was technically adequate. * There is no comparison study available. * -- Conclusions -- * Left ventricular systolic function is normal. * Ejection Fraction = 60-65%. * Focal area of apical hypokinesis. * Otherwise, normal wall motion. * There is mild concentric left ventricular hypertrophy. * The basal septum is thickened and angulated consistent with sigmoid septum. * Grade I diastolic dysfunction, (abnormal relaxation pattern). Procedure Details * A complete two-dimensional transthoracic echocardiogram was performed (2D, M-mode, Doppler and color flow Doppler). Left Ventricle * The left ventricle is normal in size. * There is mild concentric left ventricular hypertrophy. * Focal thickening of the basal septum with no evidence of left ventricular outflow obstruction. * The basal septum is thickened and angulated consistent with sigmoid septum. * Left ventricular systolic function is normal. * Ejection Fraction = 60-65%. * Focal area of apical hypokinesis. Otherwise, normal wall motion. Right Ventricle * The right ventricle is normal size. * The right ventricular systolic function is normal as assessed by tricuspid annular plane systolic excursion (TAPSE) (normal >1.5 cm). Atria * The left atrial size is normal. * Right atrial size is normal. * There is no evidence of atrial septal defect, but resolution does not allow assessment for a patent foramen ovale. Mitral Valve * The mitral valve is normal. * There is mild mitral annular calcification. * There is no mitral valve stenosis. * Significant mitral regurgitation is absent. Tricuspid Valve * The tricuspid valve is normal. * There is no tricuspid stenosis. * There is trace tricuspid regurgitation. * Doppler findings do not suggest pulmonary hypertension. Aortic Valve * The aortic valve is trileaflet. * Aortic stenosis is absent. * There is no significant aortic regurgitation. Pulmonic Valve * The pulmonary valve is inadequately visualized, but the Doppler data is adequate for interpretation. * Pulmonic stenosis is absent. * Trace pulmonic valvular regurgitation. Great Vessels * The aortic root and proximal ascending aorta are normal sized. Pericardium/Pleural * There is no pericardial effusion. Great Vessels * Normal inferior vena cava diameter and respiratory variation suggests normal central venous pressure. Left Ventricular Diastolic Function * Grade I diastolic dysfunction, (abnormal relaxation pattern). MMode 2D Measurements and Calculations IVSd 1.3 cm IVSs 1.4 cm LVIDd 4.0 cm LVIDs 3.0 cm LVPWd 1.2 cm LVPWs 1.3 cm IVS/LVPW 1.1 FS 26.3 % EDV(Teich) 70.8 ml ESV(Teich) 34.0 ml EF(Teich) 52.0 % EDV(cubed) 64.9 ml ESV(cubed) 26.0 ml EF(cubed) 59.9 % % IVS thick 4.5 % % LVPW thick 8.4 % LV mass(C)d 178.7 grams LV mass(C)dI 113.1 grams/m\S\2 LV mass(C)s 128.1 grams LV mass(C)sI 81.1 grams/m\S\2 SV(Teich) 36.8 ml SI(Teich) 23.3 ml/m\S\2 SV(cubed) 38.9 ml SI(cubed) 24.6 ml/m\S\2 Ao root diam 2.6 cm Ao root area 5.4 cm\S\2 LA dimension 3.3 cm LA/Ao 1.3 LVOT diam 2.0 cm LVOT area 3.1 cm\S\2 LVAd ap4 25.3 cm\S\2 LVLd ap4 6.9 cm EDV(MOD-sp4) 75.9 ml EDV(sp4-el) 79.3 ml LVAd ap2 19.1 cm\S\2 LVLd ap2 7.0 cm EDV(MOD-sp2) 47.0 ml EDV(sp2-el) 44.2 ml LVAs ap2 12.0 cm\S\2 LVLs ap2 6.4 cm ESV(MOD-sp2) 20.9 ml ESV(sp2-el) 19.0 ml EF(MOD-sp2) 55.5 % EF(sp2-el) 57.0 % LVLd %diff 2.6 % EDV(MOD-bp) 58.9 ml SV(MOD-sp2) 26.1 ml SI(MOD-sp2) 16.5 ml/m\S\2 SV(sp2-el) 25.2 ml SI(sp2-el) 15.9 ml/m\S\2 Doppler Measurements and Calculations MV E max marko 90.6 cm/sec MV A max marko 55.5 cm/sec MV E/A 1.6 MV P1/2t max marko 90.6 cm/sec MV P1/2t 76.6 msec MVA(P1/2t) 2.9 cm\S\2 MV dec slope 346.7 cm/sec\S\2 MV dec time 0.19 sec Ao V2 max 131.8 cm/sec Ao max PG 7.0 mmHg Ao max PG (full) 3.7 mmHg BROWN(V,A) 2.1 cm\S\2 BROWN(V,D) 2.1 cm\S\2 LV V1 max PG 3.2 mmHg LV V1 max 90.1 cm/sec MR max marko 433.2 cm/sec MR max PG 75.0 mmHg PA V2 max 91.8 cm/sec PA max PG 3.4 mmHg TR max marko 218.9 cm/sec
--- NOTE | 2017-05-04 09:35 | Cardiology Follow-Up ---
Subjective General Date of Service: May 04, 2017. Pt evaluation today including: conversation w/ patient, physical exam, chart review, lab review, review of studies, review of inpatient medication list History of Present Illness The patient is a 62 year old female seen in follow-up. Chest discomfort has resolved. She is aware of a sensation in her substernal region but does not describe it as pain. States "I can feel something there" Tolerated a.m. meal. 2-D echo performed this morning demonstrates focal apical hypokinesis with preserved LV systolic function. ECG demonstrates deep T-wave inversions with prolonged QT. Denies shortness of breath or palpitations. A.m. dose of metoprolol held due to hypotension. Patient offers no other complaints this time. Allergies Coded Allergies: Sulfa Antibiotics (Verified Adverse Reaction, Intermediate, RASH, 05/03/17) Social History Smoking Status: Never Smoker Hx Alcohol Use - Type And Amou: Yes (socially) Hx Substance Use - Type And Am: No Problem List Medical Problems: (1) Chest discomfort Status: Acute Review of Systems Respiratory: No cough, No wheezing, No shortness of breath, No dyspnea on exertion, No dyspnea at rest, No hemoptysis Cardiac: No chest pain, No orthopnea, No PND, No edema, No claudication, No palpitations Physical Exam Vital Signs Last Vital Signs Documentation Date Time Temp Pulse Resp B/P (MAP) Pulse Ox O2 Delivery O2 Flow Rate FiO2 05/04/17 07:30 36.6 63 20 95/61 (72) 97 Room Air Physical Exam Constitutional: General Apperance: well-nourished Level of Distress: NAD Head: normocephalic, atraumatic ENMT: normal ENT inspection Neck: supple, trachea midline Lungs: Respiratory effort: no dyspnea Auscultation: breath sounds normal, CTA except as noted, no wheezing, no rales/crackles, no rhonchi Cardiovascular: Heart Auscultation: RRR, normal S1, normal S2, no murmurs, no rubs, no gallops Peripheral Pulses: Radial Pulse: normal on the right Femoral Pulse: normal on the left, normal on the right Dorsalis Pedis Pulse: normal on the left, normal on the right Abdomen: Bowel Sounds: normal Inspection & Palpation: soft, non-distended, no tenderness, guarding & rebound, no masses Extremities: no cyanosis, no edema, no clubbing, no ulcers Neurologic: Gait & Station: pertinent finding (no focal deficit.) Cranial Nerves: grossly intact Assessment and Plan Assessment and Plan Final impression 1. 62-year-old female admitted with NSTEMI s/p urgent cardiac catheterization and drug-eluting stent implantation to the left anterior descending artery. Residual 70% ostial OM disease. 2. Preserved left ventricular systolic function with focal apical hypokinesis. 3. Dyslipidemia 4. Remote former tobacco Plan/ Recommendations: We'll transition short-acting metoprolol to Toprol-XL 25 mg once daily. Continue dual antiplatelet therapy uninterrupted for a minimum of 1 year. Continue high-dose statin therapy. We will repeat troponins. Continue telemetry monitoring. Observe the patient for an additional 24 hours. In regard to her obtuse marginal branch vessel disease. Continue medical management for the time being. If patient is free of angina during hospitalization will likely perform outpatient stress testing to assess hemodynamic significance. Will continue to follow during hospitalization. Laboratory Results Last 24 Hours Test 05/03/17 13:42 05/03/17 15:45 05/03/17 16:47 05/03/17 22:04 Sodium Level 138 mmol/L Potassium Level 4.0 mmol/L Chloride Level 109 mmol/L Carbon Dioxide Level 21 mmol/L Anion Gap 8.0 mmol/L Blood Urea Nitrogen 16 mg/dl Creatinine 1.10 mg/dl Est Creatinine Clear Calc Drug Dose 44.0 ml/min Estimated GFR () 62.8 Estimated GFR (Non- 54.1 BUN/Creatinine Ratio 14.3 Random Glucose 94 mg/dl Calcium Level 9.8 mg/dl Troponin I 0.477 ng/ml 5.390 ng/ml Chemistry Specimen Hemolysis White Blood Count 8.29 K/uL Red Blood Count 5.17 M/uL Hemoglobin 15.9 g/dL Hematocrit 45.4 % Mean Corpuscular Volume 87.8 fL Mean Corpuscular Hemoglobin 30.8 pg Mean Corpuscular Hemoglobin Concent 35.0 g/dl Platelet Count 320 K/uL Mean Platelet Volume 10.4 fL Neutrophils (%) (Auto) 70.7 % Lymphocytes (%) (Auto) 19.3 % Monocytes (%) (Auto) 8.1 % Eosinophils (%) (Auto) 1.3 % Basophils (%) (Auto) 0.5 % Neutrophils # (Auto) 5.86 K/uL Lymphocytes # (Auto) 1.60 K/uL Monocytes # (Auto) 0.67 K/uL Eosinophils # (Auto) 0.11 K/uL Basophils # (Auto) 0.04 K/uL RDW Standard Deviation 39.4 fL RDW Coefficient of Variation 12.3 % Immature Granulocyte % (Auto) 0.1 % Immature Granulocyte # (Auto) 0.01 K/uL Prothrombin Time 10.5 SECONDS Prothromb Time International Ratio 1.0 Activated Partial Thromboplast Time 27.8 SECONDS Partial Thromboplastin Ratio 1.1 Kaolin Activated Coagulation Time 224 SECONDS Total Creatine Kinase 307 U/L Creatine Kinase MB 26.4 ng/ml Creatine Kinase MB Ratio 8.6 Hepatitis C Antibody Screen NEG Test 05/04/17 05:50 White Blood Count 7.39 K/uL Red Blood Count 4.28 M/uL Hemoglobin 12.7 g/dL Hematocrit 38.2 % Mean Corpuscular Volume 89.3 fL Mean Corpuscular Hemoglobin 29.7 pg Mean Corpuscular Hemoglobin Concent 33.2 g/dl Platelet Count 268 K/uL Mean Platelet Volume 10.5 fL Neutrophils (%) (Auto) 57.4 % Lymphocytes (%) (Auto) 30.2 % Monocytes (%) (Auto) 10.8 % Eosinophils (%) (Auto) 1.1 % Basophils (%) (Auto) 0.4 % Neutrophils # (Auto) 4.24 K/uL Lymphocytes # (Auto) 2.23 K/uL Monocytes # (Auto) 0.80 K/uL Eosinophils # (Auto) 0.08 K/uL Basophils # (Auto) 0.03 K/uL RDW Standard Deviation 41.1 fL RDW Coefficient of Variation 12.8 % Immature Granulocyte % (Auto) 0.1 % Immature Granulocyte # (Auto) 0.01 K/uL Sodium Level 141 mmol/L Potassium Level 3.8 mmol/L Chloride Level 113 mmol/L Carbon Dioxide Level 22 mmol/L Anion Gap 6.0 mmol/L Blood Urea Nitrogen 17 mg/dl Creatinine 0.79 mg/dl Est Creatinine Clear Calc Drug Dose 62.5 ml/min Estimated GFR () 93.6 Estimated GFR (Non- 80.8 BUN/Creatinine Ratio 21.4 Random Glucose 91 mg/dl Calcium Level 8.4 mg/dl Magnesium Level 2.0 mg/dl Total Creatine Kinase 506 U/L Creatine Kinase MB 45.6 ng/ml Creatine Kinase MB Ratio 9.0 Troponin I 12.800 ng/ml Triglycerides Level 68 mg/dl Cholesterol Level 153 mg/dl HDL Cholesterol 34 mg/dl LDL Cholesterol, Calculated 105 mg/dl VLDL Cholesterol, Calculated 14 mg/dl Cholesterol/HDL Ratio 4.5
[2017-05-04] MEDS ORDERED: NURSING VERBAL MED ORDER ONE (10:15)
[2017-05-04] MEDS: ATORVASTATIN 40 MG TAB PO SCH (22:03)
[2017-05-05] VITALS: O2SAT 95
--- NOTE | 2017-05-05 00:01 | Hospitalist Progress Note ---
Hospitalist Progress Note Date of Service May 04, 2017. Subjective Pt evaluation today including: conversation w/ patient Patient with no complaints All Other Systems: Reviewed and Negative Medications Medications (Trade) Dose Ordered Sig/Monty Route Start Time Stop Time Status Last Admin Dose Admin Aspirin (Ecotrin Tab) 81 mg QAM PO 05/04/17 09:00 06/03/17 08:59 05/04/17 08:22 81 MG Clopidogrel Bisulfate (plAVix TAB) 75 mg QAM PO 05/04/17 09:00 06/03/17 08:59 05/04/17 08:23 75 MG Objective Vital Signs Date Time Temp Pulse Resp B/P (MAP) Pulse Ox O2 Delivery O2 Flow Rate FiO2 05/04/17 23:36 36.8 77 20 104/67 (79) 95 Room Air 05/04/17 20:00 98 Room Air 05/04/17 20:00 36.8 64 151/88 (109) 98 Room Air 05/04/17 16:51 36.5 67 18 148/81 (103) 99 Room Air 05/04/17 16:00 Room Air 05/04/17 12:00 Room Air 05/04/17 10:47 36.9 64 20 120/75 (90) 95 Room Air 05/04/17 08:00 Room Air 05/04/17 07:30 36.6 63 20 95/61 (72) 97 Room Air 05/04/17 04:00 96 Room Air 05/04/17 03:50 36.6 60 20 101/60 (74) 96 Room Air 05/04/17 00:00 95 Room Air Physical Exam General Appearance: WD/WN, no apparent distress Eyes: normal inspection ENT: hearing grossly normal Neck: trachea midline Respiratory/Chest: chest non-tender, lungs clear Cardiovascular: regular rate, rhythm Abdomen: normal bowel sounds Extremities: no pedal edema Neurologic/Psychiatric: alert Laboratory Results Last 24 Hours Test 05/04/17 05:50 05/04/17 14:07 05/04/17 21:52 White Blood Count 7.39 K/uL Red Blood Count 4.28 M/uL Hemoglobin 12.7 g/dL Hematocrit 38.2 % Mean Corpuscular Volume 89.3 fL Mean Corpuscular Hemoglobin 29.7 pg Mean Corpuscular Hemoglobin Concent 33.2 g/dl Platelet Count 268 K/uL Mean Platelet Volume 10.5 fL Neutrophils (%) (Auto) 57.4 % Lymphocytes (%) (Auto) 30.2 % Monocytes (%) (Auto) 10.8 % Eosinophils (%) (Auto) 1.1 % Basophils (%) (Auto) 0.4 % Neutrophils # (Auto) 4.24 K/uL Lymphocytes # (Auto) 2.23 K/uL Monocytes # (Auto) 0.80 K/uL Eosinophils # (Auto) 0.08 K/uL Basophils # (Auto) 0.03 K/uL RDW Standard Deviation 41.1 fL RDW Coefficient of Variation 12.8 % Immature Granulocyte % (Auto) 0.1 % Immature Granulocyte # (Auto) 0.01 K/uL Sodium Level 141 mmol/L Potassium Level 3.8 mmol/L Chloride Level 113 mmol/L Carbon Dioxide Level 22 mmol/L Anion Gap 6.0 mmol/L Blood Urea Nitrogen 17 mg/dl Creatinine 0.79 mg/dl Est Creatinine Clear Calc Drug Dose 62.5 ml/min Estimated GFR () 93.6 Estimated GFR (Non- 80.8 BUN/Creatinine Ratio 21.4 Random Glucose 91 mg/dl Calcium Level 8.4 mg/dl Magnesium Level 2.0 mg/dl Total Creatine Kinase 506 U/L Creatine Kinase MB 45.6 ng/ml Creatine Kinase MB Ratio 9.0 Troponin I 12.800 ng/ml 13.700 ng/ml 10.900 ng/ml Triglycerides Level 68 mg/dl Cholesterol Level 153 mg/dl HDL Cholesterol 34 mg/dl LDL Cholesterol, Calculated 105 mg/dl VLDL Cholesterol, Calculated 14 mg/dl Cholesterol/HDL Ratio 4.5 Assessment and Plan (1) NSTEMI (non-ST elevated myocardial infarction) Assessment & Plan: Status post drug-eluting stent in LAD medication management discussed in detail with the patient, aspirin and Plavix beta-blockade with statin therapy (2) Hypertension Assessment & Plan: Adjust beta-blockade (3) Hypercholesterolemia Assessment & Plan: Statin therapy Discharge planning: home
[2017-05-05 03:53] VITALS: BP 125/75; PULSE 62; TEMP 37; O2SAT 96
[2017-05-05 04:00] VITALS: O2SAT 96
[2017-05-05 07:31] VITALS: BP 130/75; PULSE 71; TEMP 36.7; O2SAT 96
[2017-05-05] MEDS: CLOPIDOGREL BISULFATE 75 MG TAB PO SCH (07:35)
[2017-05-05] MEDS: ASPIRIN 81 MG ECTAB PO SCH (07:35)
[2017-05-05] MEDS: METOPROLOL TARTRATE 25 MG TAB PO SCH (07:35)
--- NOTE | 2017-05-05 10:30 | CARDIOLOGY PROGRESS NOTE ---
DATE: 05/05/2017 DATE: 05/05/2017. The patient seen and examined. Chart, medications, telemetry reviewed. SUBJECTIVE: The patient feels well this morning. Notes no chest pain or discomfort. She has been ambulatory in the hallway without difficulty. Notes no dizziness or lightheadedness. Notes no tachypalpitations. Right groin site is mildly tender, but is healing well. OBJECTIVE: VITAL SIGNS: Heart rate is 71, blood pressure is 130/75. Telemetry reveals no arrhythmias. O2 saturations 96% on room air. HEAD, EYES, EARS, NOSE, AND THROAT: Normocephalic, atraumatic. NECK: Thin. There is no jugular venous distention. No carotid bruits. LUNGS: Clear to auscultation. CARDIOVASCULAR: Regular. There is no S3 gallop. There is no audible rub. ABDOMEN: Soft, nontender. EXTREMITIES: Without cyanosis or clubbing. There is no peripheral edema. Right groin puncture site has surrounding ecchymosis. No hematoma. No bruit. There are intact distal pulses. DATA: EKG reveals deep T-wave inversion in V2 through V6 consistent with history of apical myocardial injury. IMPRESSION: A 62-year-old female admitted with non-ST segment elevation myocardial infarction, underwent diagnostic cardiac catheterization and coronary intervention with drug-eluting stent to the left anterior descending, moderate residual narrowing of 70% obtuse marginal. RECOMMENDATIONS: The patient is on appropriate medical therapies including dual antiplatelet therapy with aspirin, clopidogrel. Will change metoprolol to long-acting form of Toprol-XL 25 mg per day. Continue high dose statin 80 mg per day. The patient may be discharged later today with planned outpatient followup with cardiology. Consider stress testing in the next 2-3 months' time.
[2017-05-05 12:19] VITALS: BP 122/79; PULSE 73; TEMP 36.6; O2SAT 96
[2017-05-05] MEDS ORDERED: METOPROLOL SUCC 25MG EXT REL TAB PO ONE (13:00)
[2017-05-05] MEDS ORDERED: LPT40 PO (13:08)
[2017-05-05] MEDS ORDERED: NTRSLP4 SL (13:08)
[2017-05-05] MEDS ORDERED: PLV75 PO (13:08)
[2017-05-05] MEDS ORDERED: TPRSR25 PO (13:08)
[2017-05-05] MEDS ORDERED: ASPEC81 PO (13:08)
[2017-05-05 13:11] VITALS: BP 122/79; PULSE 73; TEMP 36.6; O2SAT 96
--- NOTE | 2017-05-05 13:13 | Discharge Instructions ---
Discharge Instructions Date of Service May 05, 2017. Admission Reason for Admission: Nstemi Discharge Discharge Diagnosis / Problem: NSTEmI Discharge Goals Goal(s): Improve function Activity Recommendations Activity Limitations: resume your previous activity . Instructions / Follow-Up Instructions / Follow-Up Home Care: * Take your medications exactly as directed. Don't skip doses. * Remember that recovery after a heart attack takes time. Plan to rest for at lease 4-8 weeks while you recover. Then return to normal activity when your doctor says it's okay. * Ask your doctor about joining a heart rehabilitation program. * Tell your doctor if you are feeling depressed. Feelings of sadness are common after a heart attack, but it is important that you speak to someone if you are feeling overwhelmed by these feelings. * If you are having chest pain, call 911 for an ambulance. Do NOT drive yourself to the hospital. * Ask your family members to learn CPR. * Learn to take your own blood pressure and pulse. Keep a record of your results. Ask your doctor when you should seek emergency medical attention. He or she will tell you which blood pressure reading is dangerous. Lifestyle Changes: * Maintain a healthy weight. Get help to lose any extra pounds. * Cut back on salt. * Limit canned, dried, packaged, and fast foods. * Don't add salt to your food. * Season foods with herbs instead of salt when you cook. * Break the smoking habit. Enroll in a stop-smoking program to improve your chances of success. * Limit fatty foods. * Ask your doctor about having your lipid levels checked regularly. * Build up your activity according to your doctor's recommendation. * Ask your doctor when it's okay to resume sexual activity. * Try to manage stress. Follow Up: It is important for you to keep your follow up appointments with your medical provider. Current Hospital Diet Patient's current hospital diet: AHA Diet (Heart Healthy) Discharge Diet Recommended Diet: AHA Diet (Heart Healthy) Pending Studies Studies pending at discharge: no Laboratory Results Lipid Panel Test 05/04/17 05:50 Range/Units Triglycerides Level 68 0-150 mg/dl Cholesterol Level 153 0-200 mg/dl HDL Cholesterol 34 mg/dl Cholesterol/HDL Ratio 4.5 LDL Cholesterol, Calculated 105 mg/dl Medical Emergencies . Who to Call and When: Medical Emergencies: If at any time you feel your situation is an emergency, please call 911 immediately. Call 911 immediately or go to your nearest Emergency Room if you experience any of the following: Warning Signs and Symptoms of a Heart Attack * Chest pain that is not relieved by medication * Shortness of breath . Non-Emergent Contact Non-Emergency issues call your: Primary Care Provider . . "Provider Documentation" section prepared by Sedrick Donohue. . AMI Core Measures Reason no ASA as I/P: Treatment provided - N/A Reason no ASA at D/C: Treatment provided - N/A Reason no statin as I/P: Treatment provided - N/A Reason no statin at D/C: Treatment provided - N/A VTE Core Measure Inpt VTE Proph given/why not?: SCD's
[2017-05-06] MEDS ORDERED: METOPROLOL SUCC 25MG EXT REL TAB PO SCH (09:00)
--- NOTE | 2017-05-17 06:23 | DISCHARGE SUMMARY ---
HISTORY OF PRESENT ILLNESS: The patient is a 62-year-old with a history of hyperlipidemia who presented with an episode of substernal chest pain 06/24, felt like it was radiating to her shoulders, caused nausea and lasted about 15-20 minutes and then went away. She was evaluated urgently by cardiology and decision was made to take her to the cathead operator urgently. Cardiac catheterization showed a 99% mid LAD stenosis, 70% ostial obtuse marginal and a 50% mid left circumflex. She then underwent a percutaneous intervention. She underwent a successful drug-eluting stent 3.0 x 26 to her LAD. Post procedure, there was BECCA 3 flow. She tolerated the procedure well. The patient had an otherwise unremarkable hospital stay. She was placed on aspirin and Plavix, metoprolol and high-dose statin therapy. She will follow up with cardiology and consider stress testing in the next 2-3 months' time. She was discharged on aspirin 81 mg daily, atorvastatin 80 mg daily, Plavix 75 mg daily, metoprolol 25 mg daily, and sublingual nitro 0.4 every 5 minutes as needed for chest pain x3. Meloxicam and gemfibrozil were recommended to be discontinued. She will follow up with her primary care doctor in one week and cardiology in 2-3 weeks. Time spent in review of the chart and discussion with the patient on the day of discharge was 31 minutes.
[2017-06-05] MEDS ORDERED: CHOL20007 PO (09:37)
[2017-06-05] MEDS ORDERED: ATOR-24 PO (09:37)
[2017-06-05] MEDS ORDERED: COEN150C2 PO (09:37)
== END 2017-05-05 14:54 | disposition home or self-care (01) | DRG 282 ==
LOC: C.EDB 13:27 → C.2T 15:51 → EEVIPCON 15:51 → CANRESERV 16:07 → ENRESERV 16:07
PROVIDERS: ADMIT Family Medicine; ATTEND Family Medicine
PROC: 4A023N7 Measurement of Cardiac Sampling and Pressure, Left Heart, Percutaneous Approach (ICD-10-PCS; principal; 2017-05-03 15:43)
PROC: B2111ZZ Fluoroscopy of Multiple Coronary Arteries using Low Osmolar Contrast (ICD-10-PCS; principal; 2017-05-03 15:43)
DX: I21.4 Non-ST elevation (NSTEMI) myocardial infarction (principal); E78.5 Hyperlipidemia, unspecified; M54.5 Low back pain; I25.10 Atherosclerotic heart disease of native coronary artery without angina pectoris; I25.2 Old myocardial infarction